=== PATIENT | male | born 1935 | race Caucasian/White ===

== ENCOUNTER 2018-03-11 13:07 | Emergency (ER) | payer OTHER, MEDICAID ==
[~2018-03-11] VITALS: Ht 167.6 cm; Wt 102.1 kg
[2018-03-11 13:36] VITALS: BP 122/74
== END 2018-03-11 15:57 | disposition home or self-care (01) ==
LOC: ER 13:07
DX: S61.213A Laceration without foreign body of left middle finger without damage to nail, initial encounter (principal); I10 Essential (primary) hypertension; E78.5 Hyperlipidemia, unspecified; X58.XXXA Exposure to other specified factors, initial encounter; Y93.39 Activity, other involving climbing, rappelling and jumping off; Y92.89 Other specified places as the place of occurrence of the external cause; Y99.8 Other external cause status
CPT/HCPCS: 73140

== ENCOUNTER 2018-04-04 07:25 | Emergency (ER) | payer OTHER, MEDICAID ==
[~2018-04-04] VITALS: Ht 167.6 cm; Wt 99.9 kg
[2018-04-04 08:29] LABS: Basophils # (auto) 0 uL; Basophils % (auto) 0.5 % (0.0-2.0); Eosinophils # (auto) 0.1 uL; Eosinophils % (auto) 1.4 % (0.0-7.0); Hematocrit 44.6 % (41.0-53.0); Lymphocytes % (auto) 12.1 % (10.0-50.0); Mean Corpuscular Hemoglobin 29.5 pg (28.0-32.0); Mean Corpuscular Hgb Conc. 33.5 g/dL (32.0-36.0); Mean Corpuscular Volume 88.1 fL (80.0-100.0); Monocytes # (auto) 0.5 uL; Monocytes % (auto) 6.4 % (0.0-12.0); Neutrophils # (auto) 6.7 uL; Neutrophils % (auto) 79.6 % (37.0-80.0); Nucleated Red Blood Cells % 0.1 %; Platelet Count (auto) 179 10^3/uL (140-450); Red Blood Cells 5.06 10^6/uL (4.5-5.90); Red Cell Distribution Width 13.5 % (11.8-14.3); White Blood Cell 8.4 10^3/uL (4.4-10.8)
[2018-04-04 08:44] LABS: Albumin 3.5 g/dL (3.4-5.0); BUN/Creatinine Ratio 14.6; Calcium 9.2 mg/dL (8.5-10.1); Magnesium 2.1 mg/dL (1.6-2.6)
[2018-04-04 08:49] LABS: Bilirubin, Total 0.4 mg/dL (0.2-1.0); Total Protein 7.5 g/dL (6.4-8.2)
[2018-04-04 08:50] LABS: Potassium 4.5 mmol/L (3.5-5.1)
[2018-04-04 09:03] LABS: Urine WBC None Seen /hpf (0 - 3)
[2018-04-04 09:18] LABS: Urine Bacteria NONE SEEN /hpf (None Seen); Urine Blood Negative /uL (Negative); Urine Specific Gravity 1.009 (1.001-1.035)
[2018-04-04 10:31] VITALS: BP 121/78
== END 2018-04-04 10:42 | disposition home or self-care (01) ==
LOC: EDBD 07:25 → ER 07:25
DX: R42 Dizziness and giddiness (principal); I10 Essential (primary) hypertension; J44.9 Chronic obstructive pulmonary disease, unspecified; E78.5 Hyperlipidemia, unspecified
CPT/HCPCS: 36415; 70450; 71045; 80053; 81001; 83735; 83880; 84484; 85025; 93005

== ENCOUNTER 2018-06-20 12:17 | Inpatient (IN) | payer OTHER, MEDICAID | END 2018-06-21 17:50 | disposition home or self-care (01) | LOC: ER 12:17 → TELE 15:21 → TELE-WESTW 17:04 | DX: I24.9 Acute ischemic heart disease, unspecified (principal); J44.9 Chronic obstructive pulmonary disease, unspecified ==

== ENCOUNTER 2020-05-27 09:43 | Inpatient (IN) | payer OTHER, MEDICAID ==
[~2020-05-27] VITALS: Ht 182.9 cm; Wt 98.2 kg
[2020-05-27] MEDS: ALBUMIN 25% 50 ML IV SCH (00:30)
[~2020-05-27 09:43] MED LIST: AMLO5TAB15 PO; ASPI81CH74 PO; BACL10TA PO; CHOL20007 PO; CIME200T6 PO; FLUT0.05 NAS; LATA0.0019 EACHEYE; LISI40TA11 PO; MULT1TAB28 PO; SIMV10TA84 PO; TAMS0.4C36 PO; TIOT17SP IN
[2020-05-27 10:25] LABS: Basophils # (auto) 0 10 ^3/uL (0-0.2); Basophils % (auto) 0.2 % (0.0-2.0); Eosinophils # (auto) 0 10 ^3/uL (0-0.8); Hematocrit 44.6 % (41.0-53.0); Hemoglobin 14.7 g/dL (13.5-17.5); Lymphocytes # (auto) 0.4 10 ^3/uL (0.4-5.4); Lymphocytes % (auto) 5.7 % (10.0-50.0); Mean Corpuscular Hemoglobin 28.4 pg (28.0-32.0); Mean Corpuscular Volume 85.9 fL (80.0-100.0); Monocytes # (auto) 0.3 10 ^3/uL (0-1.3); Monocytes % (auto) 4.2 % (0.0-12.0); Neutrophils # (auto) 5.9 10 ^3/uL (1.6-8.6); Neutrophils % (auto) 89.9 % (37.0-80.0); Nucleated Red Blood Cells % 0.1 %; Platelet Count (auto) 131 10^3/uL (140-450); Red Blood Cells 5.19 10^6/uL (4.5-5.90); Red Cell Distribution Width 14.2 % (11.8-14.3); White Blood Cell 6.6 10^3/uL (4.4-10.8)
[2020-05-27 10:47] LABS: Albumin 2.8 g/dL (3.4-5.0); Calcium 8.7 mg/dL (8.5-10.1); Magnesium 2.1 mg/dL (1.6-2.6); Potassium 3.7 mmol/L (3.5-5.1)
[2020-05-27 10:54] LABS: BUN/Creatinine Ratio 19.8; Bilirubin, Total 0.3 mg/dL (0.2-1.0); Total Protein 6.9 g/dL (6.4-8.2)
[2020-05-27 10:59] LABS: INR 1.04 (0.9-1.15); Partial Thromboplastin Time 29.7 sec (23.0-31.2)
[2020-05-27] MEDS ORDERED: SODIUM CHLORIDE 0.9% 1,000 ML IV ONE (13:00)
[2020-05-27] MEDS ORDERED: SODIUM CHLORIDE 0.9% 500 ML IV ONE (14:30)
[2020-05-27] MEDS ORDERED: FUROSEMIDE 20 MG/2 ML VIAL IV ONE (14:45)
[2020-05-27] MEDS ORDERED: VANCOMYCIN PER PHARMACY 0 MG IV SCH (14:45)
[2020-05-27] MEDS ORDERED: ONDANSETRON HCL 4 MG/2 ML VIAL IV PRN (14:45)
[2020-05-27] MEDS ORDERED: ACETAMINOPHEN 500 MG TAB PO PRN (14:45)
[2020-05-27] MEDS ORDERED: DOCUSATE SOD 100 MG CAP PO PRN (14:45)
[2020-05-27] MEDS ORDERED: PIPERACILLIN-TAZOB 3.375GM 100 ML IV ONE (14:45)
[2020-05-27] MEDS ORDERED: REMDESIVIR PER PHARMACY 0 ML IV SCH ×2 (14:45→18:15)
[2020-05-27] MEDS ORDERED: ALBUMIN 25% 50 ML IV ONE (14:45)
[2020-05-27] MEDS ORDERED: NITROGLYCERIN 0.4 MG SL TAB SL PRN (14:45)
[2020-05-27] MEDS ORDERED: LORazepam 0.5 MG TAB PO PRN (14:45)
[2020-05-27] MEDS ORDERED: INFLUENZA QUAD 2020-2021 0.5 ML SYRG IM ONE (14:45)
[2020-05-27] MEDS ORDERED: MORPHINE SULF INJ 2 MG/ML SYRINGE 1ML IV PRN ×2 (14:45)
[2020-05-27] MEDS ORDERED: PNEUMOCOCCAL VACC POLYS 25 MCG/0.5 ML VIAL IM ONE (14:45)
[2020-05-27] MEDS ORDERED: ENOXAPARIN SOD 100 MG/1 ML SYRINGE SC ONE (14:45)
[2020-05-27] MEDS ORDERED: LORA-622 PO (14:53)
[2020-05-27] MEDS ORDERED: TRIA75TA55 PO (14:53)
[2020-05-27] MEDS ORDERED: FLUT1SPR5 (14:53)
[2020-05-27] MEDS ORDERED: CYAN1TAB11 PO (14:53)
[2020-05-27] MEDS ORDERED: SIMV-8 PO (14:53)
[2020-05-27] MEDS ORDERED: AMLO10TA13 PO (14:53)
[2020-05-27] MEDS ORDERED: FAMO-12 PO (14:53)
[2020-05-27] MEDS ORDERED: IPRA0.00 IN (14:53)
[2020-05-27 16:50] LABS: Basophils # (auto) 0 10 ^3/uL (0-0.2); Basophils % (auto) 0.4 % (0.0-2.0); Eosinophils # (auto) 0 10 ^3/uL (0-0.8); Hematocrit 42.5 % (41.0-53.0); Hemoglobin 14.1 g/dL (13.5-17.5); Lymphocytes # (auto) 0.5 10 ^3/uL (0.4-5.4); Lymphocytes % (auto) 8.3 % (10.0-50.0); Mean Corpuscular Hemoglobin 28.5 pg (28.0-32.0); Mean Corpuscular Hgb Conc. 33.3 g/dL (32.0-36.0); Mean Corpuscular Volume 85.5 fL (80.0-100.0); Monocytes # (auto) 0.3 10 ^3/uL (0-1.3); Monocytes % (auto) 5.9 % (0.0-12.0); Neutrophils # (auto) 4.9 10 ^3/uL (1.6-8.6); Neutrophils % (auto) 85.4 % (37.0-80.0); Nucleated Red Blood Cells % 0.1 %; Platelet Count (auto) 127 10^3/uL (140-450); Red Blood Cells 4.96 10^6/uL (4.5-5.90); Red Cell Distribution Width 14.6 % (11.8-14.3); White Blood Cell 5.8 10^3/uL (4.4-10.8)
[2020-05-27 17:08] LABS: Albumin 2.5 g/dL (3.4-5.0); Calcium 8.1 mg/dL (8.5-10.1); Potassium 3.8 mmol/L (3.5-5.1)
[2020-05-27 17:11] LABS: Cholesterol 91 mg/dL (< 200); Triglycerides 98 mg/dL (< 150)
[2020-05-27 17:13] LABS: HDL Cholesterol 35 mg/dL (40-59); LDL Cholesterol 48 mg/dL (< 100)
[2020-05-27 17:15] LABS: Bilirubin, Total 0.3 mg/dL (0.2-1.0); CRP High Sensitivity 14.1 mg/dL (< 0.3); Total Protein 6.2 g/dL (6.4-8.2)
[2020-05-27] MEDS: FUROSEMIDE 20 MG/2 ML VIAL IV SCH (18:20)
[2020-05-27 18:50] VITALS: BP 85/40
[2020-05-27] MEDS: BUDESONIDE (INHALATION) 180 MCG IH IN SCH ×2 (18:50→22:00)
[2020-05-27 19:31] LABS: Urine Bacteria NONE SEEN /hpf (None Seen); Urine Blood Negative /uL (Negative); Urine Hyaline Cast FEW /lpf (0 - 2); Urine Mucus FEW (None Seen); Urine Specific Gravity 1.021 (1.001-1.035); Urine WBC 2 /hpf (0 - 3)
[2020-05-27 19:36] LABS: Amphetamine Screen, Urine NEGATIVE (NEGATIVE); Barbiturate Scree,Urine NEGATIVE (NEGATIVE); Benzodiazephine Screen, Urine NEGATIVE (NEGATIVE); Cannabinoid Screen, Urine NEGATIVE (NEGATIVE); Cocaine Screen, Urine NEGATIVE (NEGATIVE); Opiate Scree,Urine NEGATIVE (NEGATIVE); Phencyclidine Screen, Urine NEGATIVE (NEGATIVE)
[2020-05-27] MEDS ORDERED: REMDESIVIR 200 MG in NS 210ml LOADING DOSE ADULT IV ONE (20:00)
[2020-05-27] MEDS ORDERED: VANCOMYCIN 1GM/250ML 250 ML IV SCH (21:00)
[2020-05-27 22:08] VITALS: BP 106/47
--- NOTE | 2020-05-27 22:08 | NUR ---
Telemetry admit from ER [facility] admitted to Telemetry unit after SBAR received. Patient oriented to JAYESH BOB RN primary RN, unit, room, bed, and unit policies regarding patient care and visiting hours. Patient now on continuous telemetry monitoring, tele box # 31 and telemetry reading on arrival to unit is sinus rhythm. Patient placed on bipap, weighed by bedscale and encouraged to call if they need something. All questions and concerns addressed, patient verbalized understanding. Bed in lowest locked position, side rails up x 2, call light within reach. Will round every hour and as needed and continue to monitor. Addendum: 05/28/20 at 0306 by JAYESH BOB RN RN ADDITION: Per report from [facility], unable to give ordered IV medications due to multiple code blues in ER. Will obtain second IV access and administer ordered medications as IV access allows.
[2020-05-27] MEDS: ALBUTEROL SULF HFA 90MCG INH 200DOSE IN PRN (23:34)
--- NOTE | 2020-05-27 23:55 | NUR ---
22:55 - Remdesivir started at this time. Vital signs: 98.6 degrees Fahrenheit, 76 HR, 20 RR, 89% pulse oxygenation, 110/50 mm Hg. 23:10 - Patient tolerating Remdesivir well. Vital signs: 98.7 degrees Fahrenheit, 81 HR, 20 RR, 87% pulse oxygenation, 106/47 mm Hg. 23:55 - Remdesivir finished, no s/s of distress. Vital signs: 97.9 degrees Fahrenheit, 73 HR, 20 RR, 89% pulse oxygenation, 113/61 mm Hg.
--- NOTE | 2020-05-28 00:25 | NUR ---
IV insertion IV access obtained, via clean sterile technique by inserting 22 gauge catheter to patient's left hand after one attempt by charge nurse Bao BRISCOE. IV secured properly. No trauma to site. Patient tolerated well. IV to patient's left AC asymptomatic, patent, and intact. Will continue to infuse ordered IV medications as patient tolerates and IV sites allow. Will continue care.
[2020-05-28] MEDS: VANCOMYCIN 1GM/250ML 250 ML IV SCH (00:30)
[2020-05-28] MEDS: ATORVASTATIN 20 MG TAB PO SCH ×2 (00:35→22:11)
[2020-05-28] MEDS: ENOXAPARIN SOD 100 MG/1 ML SYRINGE SC SCH ×2 (02:24→13:47)
[2020-05-28] MEDS: PIPERACILLIN-TAZOB 3.375GM 100 ML IV SCH ×4 (02:24→20:29)
[2020-05-28 05:00] VITALS: BP 116/51
[2020-05-28] MEDS: BUDESONIDE (INHALATION) 180 MCG IH IN SCH ×2 (06:06→20:10)
[2020-05-28] MEDS: ALBUMIN 25% 50 ML IV SCH ×2 (06:54→14:00)
[2020-05-28] MEDS: FUROSEMIDE 20 MG/2 ML VIAL IV SCH ×2 (06:54→18:43)
--- NOTE | 2020-05-28 07:30 | NUR ---
Patient lying in bed, awake and alert and oriented. Bipap mask noted to not be sealing well over patient's nose causing a leak. This RN attempted to adjust bipap mask, patient batted this RN's hands away stating, "No, I just want to be left alone!" Patient educated on the importance of keeping bipap mask on and ensuring proper seal including risks and benefits of not wearing mask, patient stated, "I don't care, just leave me alone!" RT made aware, states they will bring full face mask to assist patient. Dayshift RN aware and care endorsed. Call light within patient's reach.
--- NOTE | 2020-05-28 07:30 | NUR ---
ASSUMED CARE OF PATIENT RESTING WITH EYES CLOSED. RESPIRATIONS EVEN AND UNLABORED. PATIENT IS CURRENTLY ON BIPAP MACHINE, HOWEVER WILL PAGE RESPIRATORY TO GET A BIGGER FACE MASK DUE TO THE PATIENT'S CURRENT FACE MASK BEING TOO SMALL. HOB ELEVATED AT LEAST 30 DEGREES, BED LOCKED IN LOWEST POSITION AND CALL LIGHT IS WITHIN REACH.
--- NOTE | 2020-05-28 08:00 | NUR ---
SPOKE WITH RESPIRATORY THERAPIST VIA TELEPHONE AND RESPIRATORY THERAPIST VERBALIZED THAT THEY WILL ACQUIRE A LARGER FACE MASK FOR THIS PATIENT.
[2020-05-28 09:00] VITALS: BP 136/66
[2020-05-28] MEDS: ASPirin 81 mg TAB PO SCH (10:56)
[2020-05-28] MEDS: ASCORBIC ACID 1,000 MG TAB PO SCH (10:56)
[2020-05-28] MEDS: ZINC SULFATE 220mg CAP or TAB PO SCH (10:56)
[2020-05-28] MEDS: DexAMETHasone SOD PHOS 10MG/1ML VIAL INJ IV SCH (10:56)
[2020-05-28] MEDS: CHOLECALCIFEROL (VITD3) 2,000 UNIT CAP PO SCH (10:57)
--- NOTE | 2020-05-28 11:00 | NUR ---
CODE ASSIST CALLED CALLED TO ROOM BY JIM BRISCOE. PATIENT LYING LATERALLY IN BED AND UNRESPONSIVE WITH FACE MASK OFF. FACE MASK PUT BACK ON AND CODE PROTOCOL INITIATED. VITALS ALL RETURNED WITHIN NORMAL LIMITS WITHIN 10 MINUTES, HOWEVER PATIENT'S BIPAP MACHINE WAS ADJUSTED TO REACH A FAVORABLE O2 SATURATION. PATIENT ALERT AND ABLE TO RESPOND WELL OBEY COMMANDS. ORDERS RECEIVED FROM DR MARIANO TO ADJUST ATIVAN TO IV RATHER THAN PO. CONTINUE CARE.
[2020-05-28] MEDS: LORazepam 2MG/ML-1ML VIAL IV PRN (13:03)
[2020-05-28 13:30] VITALS: BP 106/51
[2020-05-28 13:51] LABS: Basophils # (auto) 0 10 ^3/uL (0-0.2); Basophils % (auto) 0.1 % (0.0-2.0); Eosinophils # (auto) 0 10 ^3/uL (0-0.8); Hemoglobin 14.5 g/dL (13.5-17.5); Lymphocytes # (auto) 0.3 10 ^3/uL (0.4-5.4); Lymphocytes % (auto) 4.3 % (10.0-50.0); Mean Corpuscular Hemoglobin 28.3 pg (28.0-32.0); Mean Corpuscular Hgb Conc. 32.9 g/dL (32.0-36.0); Mean Corpuscular Volume 85.9 fL (80.0-100.0); Monocytes # (auto) 0.1 10 ^3/uL (0-1.3); Monocytes % (auto) 1.5 % (0.0-12.0); Neutrophils # (auto) 6.4 10 ^3/uL (1.6-8.6); Neutrophils % (auto) 94.1 % (37.0-80.0); Nucleated Red Blood Cells % 0.2 %; Platelet Count (auto) 139 10^3/uL (140-450); Red Blood Cells 5.12 10^6/uL (4.5-5.90); Red Cell Distribution Width 14.2 % (11.8-14.3); White Blood Cell 6.8 10^3/uL (4.4-10.8)
[2020-05-28 14:08] LABS: Albumin 2.7 g/dL (3.4-5.0); Calcium 8.3 mg/dL (8.5-10.1); Potassium 3.7 mmol/L (3.5-5.1)
[2020-05-28 14:12] LABS: BUN/Creatinine Ratio 20.4; Bilirubin, Total 0.5 mg/dL (0.2-1.0); Total Protein 6.5 g/dL (6.4-8.2)
[2020-05-28] MEDS: REMDESIVIR 100 MG in SODIUM CHL 0.9% 250 ML IV SCH (15:00)
--- NOTE | 2020-05-28 16:00 | NUR ---
PATIENT MOVED TO ROOM 44-6 DUE TO THE FACT THAT HE NEEDS A SITTER
[2020-05-28 17:00] VITALS: BP 117/59
--- NOTE | 2020-05-28 18:00 | NUR ---
REMDESIVIR PRE INFUSION VITALS BP-117/59, O2-96, HR 70, TEMP 98.0, RR 20 15 MINUTE POST INFUSION BP-107,52, O2-92, HR 86, TEMP 98.0, RR 20 POST INFUSION VITALS BP-107/57, O2-90, HR 64, TEMP 98.2, RR 36
--- NOTE | 2020-05-28 18:50 | NUR ---
instructed by pharmacist to endorse zosyn administration to noc shift
--- NOTE | 2020-05-28 20:00 | NUR ---
RECEIVED PATIENT FROM DAY SHIFT RN. PATIENT RESTING IN BED. NO S/S OF DISTRESS NOTED. PATIENT IS ON BIPAP WITH O2 SAT 87%. DENIED PAIN AT THIS TIME. POC INSTRUCTED AND ENCOURAGED PATIENT TO CALL FOR TIRE BAGGER IF NEEDED. BED IN LOWEST POSITION WITH SIDE RAILS UP X 2. CALL STEVENSON WITHIN EACH. ALARM ON. SITTER AT BEDSIDE FOR SAFETY. CONTINUE TO MONITOR FOR CHANGES Q1H AND PRN
--- NOTE | 2020-05-28 20:04 | NUR ---
ENDORSED CARE TO NOC SHIFT RN
[2020-05-28] MEDS: ALBUTEROL SULF HFA 90MCG INH 200DOSE IN PRN (20:10)
[2020-05-28 22:00] VITALS: BP 112/55
--- NOTE | 2020-05-28 22:30 | NUR ---
ORAL MEDIATION GIVEN ORDERED. PATIENT SWALLOWED WELL, BUT O2 SAT DROPPED TO 70S%, RT PAGED AND CAME RIGHT WAY, FIXED PATIENT ON BIPAP. O2 SAT BACK TO 86%. CONTINUE TO MONITOR.
[2020-05-29] MEDS: VANCOMYCIN 1GM/250ML 250 ML IV SCH ×2 (00:12→23:51)
[2020-05-29] MEDS: PIPERACILLIN-TAZOB 3.375GM 100 ML IV SCH ×4 (01:37→19:00)
[2020-05-29] MEDS: ENOXAPARIN SOD 100 MG/1 ML SYRINGE SC SCH ×2 (01:39→14:12)
--- NOTE | 2020-05-29 04:26 | NUR ---
CHANGED PATIENT, PATIENT TOLERATED WELL. O2 SAT 86% ON BIPAP. CONTINUE TO MONITOR.
[2020-05-29 05:00] VITALS: BP 110/52
[2020-05-29] MEDS: BUDESONIDE (INHALATION) 180 MCG IH IN SCH ×2 (05:49→20:00)
[2020-05-29] MEDS: FUROSEMIDE 20 MG/2 ML VIAL IV SCH ×2 (06:19→19:00)
--- NOTE | 2020-05-29 07:30 | NUR ---
Opening Shift Note Assumed care of patient, awake and alert. Pt on bipap, sating in the 90's. Instructed on POC and to calling for assist PRN, will continue to monitor for changes Q1hr and PRN. Sitter at bedside.
[2020-05-29 09:03] VITALS: BP 106/51
[2020-05-29] MEDS: DexAMETHasone SOD PHOS 10MG/1ML VIAL INJ IV SCH (10:37)
--- NOTE | 2020-05-29 11:45 | NUR ---
MADE DR CASANOVA AWARE OF PT ALT 288, AND PHARMACY INQUIRING ABOUT REMDESIVIR DOSE. PER DR CASANOVA HOLD REMDESIVIR DOSE TODAY.
[2020-05-29] MEDS: ASPirin 81 mg TAB PO SCH (12:53)
[2020-05-29] MEDS: ASCORBIC ACID 1,000 MG TAB PO SCH (12:54)
[2020-05-29] MEDS: CHOLECALCIFEROL (VITD3) 2,000 UNIT CAP PO SCH (12:54)
[2020-05-29] MEDS: ZINC SULFATE 220mg CAP or TAB PO SCH (12:54)
[2020-05-29] MEDS: HYDROcodone-ACET 5/325MG TAB PO PRN (12:55)
[2020-05-29 13:00] VITALS: BP 113/66
--- NOTE | 2020-05-29 13:00 | NUR ---
DR JOAQUIN IN TO SEE PT. NO NEW ORDERS RECEIVED.
[2020-05-29 14:37] VITALS: BP 98/64
[2020-05-29 17:00] VITALS: BP 123/69
--- NOTE | 2020-05-29 19:15 | NUR ---
CHANGE OF SHIFT REPORT GIVEN TO MANUAL TRAINING TEACHER RN.PT STABLE AT THIS TIME. SITTER AT BEDSIDE.
--- NOTE | 2020-05-29 19:45 | NUR ---
RECEIVED PATIENT FROM DAY SHIFT RN. PATIENT RESTING IN BED. NO S/S OF DISTRESS NOTED. PATIENT IS ON BIPAP WITH O2 SAT 92%. DENIED PAIN AT THIS TIME. POC INSTRUCTED AND ENCOURAGED PATIENT TO CALL FOR LUBE TECHNICIAN IF NEEDED. BED IN LOWEST POSITION WITH SIDE RAILS UP X 2. CALL STEVENSON WITHIN EACH. ALARM ON. SITTER AT BEDSIDE FOR SAFETY. CONTINUE TO MONITOR FOR CHANGES Q1H AND PRN
[2020-05-29] MEDS: ALBUTEROL SULF HFA 90MCG INH 200DOSE IN PRN (20:00)
[2020-05-29 22:14] VITALS: BP 102/53
[2020-05-29] MEDS: ATORVASTATIN 20 MG TAB PO SCH (22:14)
--- NOTE | 2020-05-29 22:22 | NUR ---
ORAL MEDIATION GIVEN ORDERED. PATIENT SWALLOWED WELL, NO S/S OF ASPIRATION NOTED. O2 SAT 92%. CONTINUE TO MONITOR.
[2020-05-30] MEDS: HYDROcodone-ACET 5/325MG TAB PO PRN (01:00)
[2020-05-30] MEDS: PIPERACILLIN-TAZOB 3.375GM 100 ML IV SCH ×4 (02:47→22:30)
[2020-05-30] MEDS: ENOXAPARIN SOD 100 MG/1 ML SYRINGE SC SCH ×2 (02:48→13:34)
--- NOTE | 2020-05-30 03:34 | NUR ---
CHANGED PATIENT, PATIENT TOLERATED WELL. O2 SAT 94% ON BIPAP. CONTINUE TO MONITOR.
[2020-05-30 05:00] VITALS: BP 108/57
[2020-05-30] MEDS: ALBUTEROL SULF HFA 90MCG INH 200DOSE IN PRN ×3 (06:14→18:00)
[2020-05-30] MEDS: BUDESONIDE (INHALATION) 180 MCG IH IN SCH ×2 (06:16→18:00)
[2020-05-30] MEDS: FUROSEMIDE 20 MG/2 ML VIAL IV SCH ×2 (06:20→18:51)
--- NOTE | 2020-05-30 06:34 | NUR ---
RT PAGED TO SWITCH PATIENT'S MASK FOR BIPAP. O2 SAT 94% NOW. CONTINUE TO MONITOR.
[2020-05-30 07:33] LABS: Albumin 2.4 g/dL (3.4-5.0); BUN/Creatinine Ratio 32.9; Bilirubin, Total 0.6 mg/dL (0.2-1.0); Calcium 8.5 mg/dL (8.5-10.1); Total Protein 5.7 g/dL (6.4-8.2)
[2020-05-30 07:44] LABS: Potassium 2.9 mmol/L (3.5-5.1)
[2020-05-30 09:00] VITALS: BP 120/57
[2020-05-30] MEDS: ZINC SULFATE 220mg CAP or TAB PO SCH (10:00)
[2020-05-30] MEDS: CHOLECALCIFEROL (VITD3) 2,000 UNIT CAP PO SCH (10:00)
[2020-05-30] MEDS: ASPirin 81 mg TAB PO SCH (10:00)
[2020-05-30] MEDS: ASCORBIC ACID 1,000 MG TAB PO SCH (10:00)
[2020-05-30] MEDS: LORazepam 2MG/ML-1ML VIAL IV PRN ×2 (10:19→10:41)
[2020-05-30] MEDS: DexAMETHasone SOD PHOS 10MG/1ML VIAL INJ IV SCH (10:19)
--- NOTE | 2020-05-30 11:50 | NUR ---
MD IRIZARRY IN UNIT: PATIENT IN NEED OF PICC LINE FOR TPN, UPDATED ON PO INTAKE, AND BIPAP SETTINGS.
--- NOTE | 2020-05-30 12:04 | NUR ---
Nutrition Assessment Notes Please refer to link for full assessment notes. Est Energy needs: 3423-0872 kcals (17-20 kcal/kgBW) Est Protein needs: 102-113 gms/day (1.0-1.1 gm/kgBW) Will continue to monitor and reassess prn. Addendum: 05/30/20 at [address] Amended: Links added.
[2020-05-30 13:00] VITALS: BP 109/57
--- NOTE | 2020-05-30 14:07 | NUR ---
Assessment Patient is a 84 year old male, patient was unable to speak with SW, ADAMARIS called ex- Michelle ([phone]). Per Michelle, prior to patient being admitting to [facility], patient is alert and oriented. Per Pat, patient cognitive abilities are intact. Per Pat, patient could do all ADL's and ambulate independently. Per Pat, patient is retired and receives social security and [employer] benefits as income. Per Pat, patient lives with her, Per Pat, patient can return home only if he is COVID negative, if patient is COVID positive on discharge date, patient can not return home until he test negative. Per Pat, if patient is test negative at discharge, she will provide transportation post discharge. Per Pat, she is his support system. Per Michelle, suggested that patient should receive Advance Directive forms. Discharge planning: Patient will return home post discharge if tested negative for COVID19, patient will follow up care with his PCP post discharge. SW will provide Advance Directive forms prior to discharge. There are no other discharge needs to address at the moment. Addendum: 05/30/20 at 1415 by NNEKA FLANNERY Amended: Links added.
[2020-05-30] MEDS ORDERED: POTASSIUM EFFERVESENT TAB 25 MEQ PO ONE (14:15)
[2020-05-30] MEDS ORDERED: ACETAMINOPHEN 500 MG TAB PO PRN (14:15)
--- NOTE | 2020-05-30 14:15 | NUR ---
Consultation Patient lives with his ex- Pat, Per Michelle, patient can not return home if COVID positive on discharge. Per Michelle, she wants patient to test negative for COVID before being discharge home. Per Michelle, she has recovered from her broken hip and she can assist care with patient post discharge.
[2020-05-30] MEDS: ENOXAPARIN SOD 80 MG/0.8ML SYRINGE SC SCH (14:30)
[2020-05-30] MEDS: REMDESIVIR 100 MG in SODIUM CHL 0.9% 250 ML IV SCH (15:33)
[2020-05-30] MEDS ORDERED: PPN PER PHARMACY 0 ML IV SCH (15:45)
[2020-05-30 17:00] VITALS: BP 112/64
--- NOTE | 2020-05-30 17:38 | NUR ---
PICC LINE RN AT BEDSIDE.
--- NOTE | 2020-05-30 17:39 | NUR ---
PATIENT UNABLE TO DRINK EFFERVESCENT, STATED "IT'S BITTER." BIPAP PUT BACK IN PLACE, DOCUMENTED PATIENT REFUSAL.
--- NOTE | 2020-05-30 18:51 | NUR ---
PICC line placement Patient/Patient significant other educated on need for PICC line placement. All risks and benefits explained and all questions and concerns addressed prior to procedure. Noted past medical history and allergies with no contraindications. INR and Plt counts within acceptable range. 5 fr PICC line inserted via LEFT BRACHIAL vein using [employer]'s [employer] US and Tip Location System. Sterile technique with maximum barrier precautions utilized. Blood return obtained from each of 2 lumens and each flushed easily with NS using proper technique. PICC secured with Stat-lock; biodisc and occlusive dressing applied. Stat portable chest x-ray obtained for PICC tip placement. *Baseline Arm Circumference 30. PICC lot #[id number]. INTERNAL LENGTH 50CM EXTERNAL LENGTH 2CM
--- NOTE | 2020-05-30 18:52 | NUR ---
CARMEL HELD: PER POTASSIUM LEVEL, 2.9 AND PATIENT DID NOT TAKE PO POTASSIUM EFFERVESCENT ORDERED TODAY.
--- NOTE | 2020-05-30 18:56 | NUR ---
MEASURING TAPE AT BEDSIDE. PER [facility] RN, ARM INITIALLY AT 30CM, RN'S TO MEASURE CIRCUMFERENCE TO ENSURE NO SWELLING OR CHANGES ARE MADE THROUGHOUT THE NEXT SHIFT.
[2020-05-30] MEDS: AMINO ACID INFUSION IN D10W 1,000 ML IV NR (19:42)
[2020-05-30 22:00] VITALS: BP 123/60
[2020-05-30] MEDS: SODIUM CHLOR 0.9% PF (SALINE LOCK) 10ML VIAL/SYR IV SCH (22:30)
--- NOTE | 2020-05-30 23:00 | NUR ---
NOTE Circumference of left arm is 30. No changes noted in circumference. CXR shows correct placement of PICC. PICC lines flushed and alcohol caps applied. Took off gauze that was applied to PICC site d/t bleeding at insertion site. There was still some minimal bleeding on the site. Reapplied some gauze and coban to the site.
[2020-05-30] MEDS: InsuLIN REG 1unit/0.01ml Soln (100units/ml) SC SCH (23:35)
[2020-05-30] MEDS: ACCU-CHEK COMFORT CURVE STRIP VI SCH (23:38)
[2020-05-31] MEDS ORDERED: DEXTROSE (50%) 50ML SYRG IV SCH
--- NOTE | 2020-05-31 01:47 | NUR ---
IV removed 22G IV to left hand pulled out on accident when patient was turning in bed. The site was bleeding significantly. Pressure applied to site and applied gauze.
[2020-05-31] MEDS: ENOXAPARIN SOD 80 MG/0.8ML SYRINGE SC SCH ×2 (02:10→16:51)
--- NOTE | 2020-05-31 03:51 | NUR ---
PICC Line Dressing Changes PICC line dressing change done with a sterile technique. Cleansed with chloraprep scrub/betadine. Stat lock, and bio-patch as available. Occlusive dressing applied. Changed claves weekly and post lab draw. During dressing change, some bleeding was noted to PICC line insertion site. Some pressure applied. Dressing is CDI at this time. Will inform day shift RN to observe for bleeding as well.
[2020-05-31 05:00] VITALS: BP 144/91
[2020-05-31] MEDS: InsuLIN REG 1unit/0.01ml Soln (100units/ml) SC SCH ×3 (05:39→18:00)
[2020-05-31] MEDS: ACCU-CHEK COMFORT CURVE STRIP VI SCH ×3 (05:43→18:24)
[2020-05-31] MEDS: PIPERACILLIN-TAZOB 3.375GM 100 ML IV SCH ×3 (05:44→21:14)
[2020-05-31] MEDS: FUROSEMIDE 20 MG/2 ML VIAL IV SCH (05:45)
[2020-05-31] MEDS: BUDESONIDE (INHALATION) 180 MCG IH IN SCH ×2 (05:55→18:32)
--- NOTE | 2020-05-31 07:00 | NUR ---
PAGED RT BIPAP machine keeps beeping at this time. Patient's SPO2 was ranging about 82-87%. Repositioned patient and SPO2 now currently at 90%. Will inform day shift RN.
--- NOTE | 2020-05-31 07:57 | NUR ---
Nutrition Consult TPN Pt is a new consult for new TPN. Pt is with a order of TPN at 50 ml/hr providing 510 kcal, 42.5g protein. Consider advancing TPN to meet >75% of need as medically feasible Advance diet as medically feasible.
[2020-05-31 09:00] VITALS: BP 132/66
[2020-05-31] MEDS: DexAMETHasone SOD PHOS 10MG/1ML VIAL INJ IV SCH (10:00)
[2020-05-31] MEDS: CHOLECALCIFEROL (VITD3) 2,000 UNIT CAP PO SCH (10:00)
[2020-05-31] MEDS: SODIUM CHLOR 0.9% PF (SALINE LOCK) 10ML VIAL/SYR IV SCH ×2 (10:00→21:13)
[2020-05-31] MEDS: POTASSIUM CHL 20 Meq TABLET PO SCH (10:00)
[2020-05-31] MEDS: ZINC SULFATE 220mg CAP or TAB PO SCH (10:00)
[2020-05-31] MEDS: ASPirin 81 mg TAB PO SCH (10:00)
[2020-05-31] MEDS: ASCORBIC ACID 1,000 MG TAB PO SCH (10:00)
--- NOTE | 2020-05-31 11:15 | NUR ---
Respiratory note: CHANGED PT MASK TO LARGE TOTAL FACE MASK. PT TOLERATING IT WELL. WILL CONTINUE TO MONITOR.
[2020-05-31 11:20] LABS: Basophils # (auto) 0 10 ^3/uL (0-0.2); Basophils % (auto) 0.1 % (0.0-2.0); Eosinophils # (auto) 0 10 ^3/uL (0-0.8); Hematocrit 44.3 % (41.0-53.0); Hemoglobin 14.9 g/dL (13.5-17.5); Lymphocytes # (auto) 0.6 10 ^3/uL (0.4-5.4); Lymphocytes % (auto) 4.3 % (10.0-50.0); Mean Corpuscular Hemoglobin 28.6 pg (28.0-32.0); Mean Corpuscular Hgb Conc. 33.6 g/dL (32.0-36.0); Mean Corpuscular Volume 85.1 fL (80.0-100.0); Monocytes # (auto) 0.7 10 ^3/uL (0-1.3); Monocytes % (auto) 5.2 % (0.0-12.0); Neutrophils # (auto) 12.6 10 ^3/uL (1.6-8.6); Neutrophils % (auto) 90.4 % (37.0-80.0); Platelet Count (auto) 212 10^3/uL (140-450); Red Cell Distribution Width 14.5 % (11.8-14.3); White Blood Cell 13.9 10^3/uL (4.4-10.8)
[2020-05-31 11:35] LABS: Albumin 2.6 g/dL (3.4-5.0); Calcium 8.9 mg/dL (8.5-10.1); Magnesium 2.8 mg/dL (1.6-2.6); Potassium 3.8 mmol/L (3.5-5.1)
[2020-05-31 12:07] LABS: BUN/Creatinine Ratio 39.5; Bilirubin, Total 0.6 mg/dL (0.2-1.0); CRP High Sensitivity 3.64 mg/dL (< 0.3); Phosphorus 2.1 mg/dL (2.5-4.90); Pre Albumin 11.2 mg/dL (20.0-40.0); Total Protein 6.2 g/dL (6.4-8.2)
[2020-05-31 13:00] VITALS: BP 133/65
--- NOTE | 2020-05-31 14:05 | NUR ---
DOCTOR LEOS AT BEDSIDE ASSESSING PATIENT, CHANGED BIPAP SETTING TO 18/10 FIO2 STILL AT 100% PATIENTS O2 AT 91%. NEW ORDERS RECEIVED TO TRANSFER PATIENT TO [facility]. HIGH SCHOOL COORDINATOR CALLED AND INFORM, AWAITING AVAILABLE BED FROM [facility].
[2020-05-31] MEDS ORDERED: NS IV ONE (14:15)
[2020-05-31] MEDS ORDERED: [UNRECOGNIZED DRUG - OTHER] IV ONE (14:15)
[2020-05-31] MEDS ORDERED: TPN PER PHARMACY 0 ML IV SCH (14:15)
--- NOTE | 2020-05-31 14:20 | NUR ---
DOCTOR IRIZARRY AT BEDSIDE DISCUSSING POC PATIENT VERBALIZES UNDERSTANDING AND AGREES WITH POC.
[2020-05-31] MEDS ORDERED: FUROSEMIDE 40 MG/4 ML VIAL IV ONE (15:30)
[2020-05-31] MEDS: AMINO ACID INFUSION IN D10W 1,000 ML IV NR (16:00)
[2020-05-31] MEDS: REMDESIVIR 100 MG in SODIUM CHL 0.9% 250 ML IV SCH (16:51)
[2020-05-31 17:00] VITALS: BP 131/70
--- NOTE | 2020-05-31 17:30 | NUR ---
Thibodeaux catheter insertion Patient assessed and determined to be in need of thibodeaux catheter. Order obtained from MD. Patient educated on catheter and reason for insertion. All questions answered. Thibodeaux catheter 16 guage Syriac inserted with clean sterile technique. Patient tolerated well.
--- NOTE | 2020-05-31 19:10 | NUR ---
remdesivir v/s 1800PRE- 131/70 HR 70 [id number] MIN-122/65 69HR 1900 POST-127/63 66HR NO S/S OF DISTRESS NOTED
[2020-05-31] MEDS ORDERED: TPN PER PHARMACY IV NR ×6 (20:00)
[2020-05-31 23:55] VITALS: BP 147/72
[2020-06-01] MEDS: InsuLIN REG 1unit/0.01ml Soln (100units/ml) SC SCH ×4 (03:30→18:52)
[2020-06-01] MEDS: ENOXAPARIN SOD 80 MG/0.8ML SYRINGE SC SCH ×2 (03:30→16:00)
[2020-06-01] MEDS: PIPERACILLIN-TAZOB 3.375GM 100 ML IV SCH ×3 (06:21→23:05)
[2020-06-01] MEDS: ACCU-CHEK COMFORT CURVE STRIP VI SCH ×4 (06:21→18:00)
[2020-06-01] MEDS: BUDESONIDE (INHALATION) 180 MCG IH IN SCH ×2 (07:01→18:55)
[2020-06-01 07:19] LABS: Hematocrit 45.6 % (41.0-53.0); Hemoglobin 14.9 g/dL (13.5-17.5); Mean Corpuscular Hemoglobin 27.8 pg (28.0-32.0); Mean Corpuscular Hgb Conc. 32.7 g/dL (32.0-36.0); Mean Corpuscular Volume 84.9 fL (80.0-100.0); Platelet Count (auto) 205 10^3/uL (140-450); Red Blood Cells 5.36 10^6/uL (4.5-5.90); Red Cell Distribution Width 14.8 % (11.8-14.3); White Blood Cell 12.8 10^3/uL (4.4-10.8)
[2020-06-01 07:50] LABS: Band Neutrophils % (manual) 0; Basophils % (manual) 0 (0.0-2.0); Blast Cells 0; Eosinophils % (manual) 0 (0-7); Metamyelocytes % 0; Promyelocytes % 0; Reactive Lymphocytes 0
[2020-06-01 08:43] LABS: Albumin 2.6 g/dL (3.4-5.0); BUN/Creatinine Ratio 35.5; Bilirubin, Total 0.7 mg/dL (0.2-1.0); Calcium 9.3 mg/dL (8.5-10.1); Magnesium 2.5 mg/dL (1.6-2.6); Phosphorus 2.2 mg/dL (2.5-4.90); Total Protein 6.4 g/dL (6.4-8.2)
[2020-06-01 09:00] VITALS: BP 143/70
[2020-06-01 09:14] LABS: Lymphocytes % (manual) 5 (10.0-50.0); Monocytes % (manual) 5 (0-12); Myelocytes % 2
[2020-06-01] MEDS: ASCORBIC ACID 1,000 MG TAB PO SCH (10:00)
[2020-06-01] MEDS: ZINC SULFATE 220mg CAP or TAB PO SCH (10:00)
[2020-06-01] MEDS: SODIUM CHLOR 0.9% PF (SALINE LOCK) 10ML VIAL/SYR IV SCH ×2 (10:00→23:05)
[2020-06-01] MEDS: POTASSIUM CHL 20 Meq TABLET PO SCH (10:00)
[2020-06-01] MEDS: CHOLECALCIFEROL (VITD3) 2,000 UNIT CAP PO SCH (10:00)
[2020-06-01] MEDS ORDERED: POTASSIUM PHOSPHATE 44 MEQ in D5W 5% 250 ML IV ONE (10:15)
[2020-06-01] MEDS: FUROSEMIDE 40 MG/4 ML VIAL IV SCH (11:09)
[2020-06-01] MEDS: DexAMETHasone SOD PHOS 10MG/1ML VIAL INJ IV SCH (11:09)
--- NOTE | 2020-06-01 12:41 | NUR ---
Called and spoke with Pat (patients significant other)[phone] Per Pat she is no longer to [place] and all medical decisions are to be made by his daughter Carolee. Doctor Andrew on phone with patients daughter Carolee ([phone])discussing POC.
[2020-06-01 13:00] VITALS: BP 136/67
[2020-06-01] MEDS: REMDESIVIR 100 MG in SODIUM CHL 0.9% 250 ML IV SCH (16:05)
[2020-06-01 17:00] VITALS: BP 125/71
--- NOTE | 2020-06-01 17:30 | NUR ---
REMDESIVIR V/S 1630 PRE 125/71 HR 71 1645 15 MINUTE 127/65 1745 POST REMDESIVIR V/S 130/59 HR 70 NO S/S OF DISTRESS NOTED
[2020-06-01] MEDS: ALBUTEROL SULF HFA 90MCG INH 200DOSE IN PRN (18:55)
[2020-06-01] MEDS ORDERED: TPN PER PHARMACY IV NR ×8 (20:00)
[2020-06-01 21:38] VITALS: BP 150/72
[2020-06-02] MEDS: ACCU-CHEK COMFORT CURVE STRIP VI SCH ×4 (01:23→17:51)
[2020-06-02] MEDS: InsuLIN REG 1unit/0.01ml Soln (100units/ml) SC SCH ×4 (01:24→17:52)
[2020-06-02] MEDS: ENOXAPARIN SOD 80 MG/0.8ML SYRINGE SC SCH ×2 (04:30→15:11)
[2020-06-02 05:00] VITALS: BP 143/74
[2020-06-02] MEDS: PIPERACILLIN-TAZOB 3.375GM 100 ML IV SCH ×3 (05:56→21:34)
--- NOTE | 2020-06-02 06:00 | NUR ---
Patient having O2 sat 82%. RT at the bedside and adjusted the the Bipap. Sitter at the bedside. Will continue to monitor patient.
[2020-06-02] MEDS: BUDESONIDE (INHALATION) 180 MCG IH IN SCH ×2 (06:08→21:34)
[2020-06-02 06:52] LABS: Potassium 3.4 mmol/L (3.5-5.1)
[2020-06-02 06:58] LABS: Albumin 2.7 g/dL (3.4-5.0); BUN/Creatinine Ratio 35.6; Bilirubin, Total 0.9 mg/dL (0.2-1.0); Calcium 9.5 mg/dL (8.5-10.1); Magnesium 2.5 mg/dL (1.6-2.6); Phosphorus 3.5 mg/dL (2.5-4.90); Total Protein 6.6 g/dL (6.4-8.2)
[2020-06-02 07:51] VITALS: BP 137/70
[2020-06-02] MEDS: ASCORBIC ACID 1,000 MG TAB PO SCH (10:00)
[2020-06-02] MEDS: ZINC SULFATE 220mg CAP or TAB PO SCH ×2 (10:00→10:43)
[2020-06-02] MEDS: CHOLECALCIFEROL (VITD3) 2,000 UNIT CAP PO SCH (10:00)
[2020-06-02] MEDS: POTASSIUM CHL 20 Meq TABLET PO SCH (10:00)
--- NOTE | 2020-06-02 10:00 | NUR ---
PT UNABLE TO TAKE HIS PILLS, PT ON BIPAP, O2 DROPS WITHOUT BIPAP.
[2020-06-02] MEDS: FUROSEMIDE 40 MG/4 ML VIAL IV SCH (10:43)
[2020-06-02] MEDS: DexAMETHasone SOD PHOS 10MG/1ML VIAL INJ IV SCH (10:43)
[2020-06-02] MEDS: SODIUM CHLOR 0.9% PF (SALINE LOCK) 10ML VIAL/SYR IV SCH ×2 (10:43→20:31)
[2020-06-02] MEDS ORDERED: POTASSIUM CHL 20MEQ/100ML 100 ML IV ONE ×2 (11:00→13:30)
[2020-06-02 12:46] VITALS: BP 150/76
--- NOTE | 2020-06-02 14:52 | NUR ---
Nutrition Followup Note Wt 97.6kg Pt is covid positive in covid isolation. Pt is NPO with TPN advanced to 53 ml/hr providing 1230 kcal, 70g protein and 950 NPCs. This provides 60-71% of energy needs and 62-69% of protein needs. Advance TPN to meet >75% of needs Est Energy needs: 6941-3645 kcals (17-20 kcal/kgBW) Est Protein needs: 102-113 gms/day (1.0-1.1 gm/kgBW) Will continue to monitor and reassess prn. Labs: Na 147H, Creat 1.32H, K 3.4L, BUn 47H, Alb 2.7L, GLUC 233 BM: Pt with 1 BMs 05/29 Skin: BS 13 mod risk, full details in hospice patient care secretary note. PES: 1) Inadequate oral intake r/t pt with a poor appetite aeb <25% PO intake 2) Altered nutrition related lab values r/t current/chronic medical condition aeb elev RFTs, elev LFTs, hypokalemia, hyperglycemia, hypoalbuminemia Comments Will continue to monitor PO status, skin status, pertinent labs and weight trends. Will f/u in 2-3 days 1) Advance TPN to meet >75% of needs 2) advance diet as medically feasible 3) Continue current plan of care Expected Outcomes/Goals: Pt labs to improve
[2020-06-02 17:00] VITALS: BP 148/81
--- NOTE | 2020-06-02 18:02 | NUR ---
CALLED DAUGHTER CARLOS TEL# [phone] FOR TELEPHONE CONSENT FOR CONVALESCENT PLASMA TRANSFUSION, CARLOS DID NOT ANSWER, I LEFT A MESSAGE FOR HER TO CALL ME BACK.
--- NOTE | 2020-06-02 18:12 | NUR ---
CARLOS URRUTIA, PT'S DAUGHTER CALLED TO GIVE CONSENT FOR CONVALESCENT PLASMA TRANSFUSION WITH RACHNA BANGURA SECOND WITNESS.
[2020-06-02] MEDS ORDERED: TPN PER PHARMACY IV NR ×8 (20:00)
[2020-06-02 21:53] VITALS: BP 141/65
[2020-06-03] VITALS (7 sets, daily range): BP systolic 103–132; BP diastolic 51–84
[2020-06-03] MEDS: InsuLIN REG 1unit/0.01ml Soln (100units/ml) SC SCH ×4 (00:44→18:45)
[2020-06-03] MEDS: ACCU-CHEK COMFORT CURVE STRIP VI SCH ×4 (00:45→18:03)
[2020-06-03] MEDS: ENOXAPARIN SOD 80 MG/0.8ML SYRINGE SC SCH ×2 (02:58→14:37)
--- NOTE | 2020-06-03 04:52 | NUR ---
PAGED RT To come assess BIPAP machine. It is showing an air leak. SPO2 ranging from 82-87% at this time. Face mask difficult to adjust on patient.
--- NOTE | 2020-06-03 04:56 | NUR ---
RT AT BEDSIDE RT EXAMINED PATIENT. FACE MASK WAS FIXED WHEN I ROUNDED AROUND THIS TIME. SPO2 AT 89-90%.
[2020-06-03] MEDS: PIPERACILLIN-TAZOB 3.375GM 100 ML IV SCH ×2 (05:53→14:37)
[2020-06-03 06:36] LABS: Hematocrit 47.7 % (41.0-53.0); Hemoglobin 15.9 g/dL (13.5-17.5); Mean Corpuscular Hemoglobin 28.4 pg (28.0-32.0); Mean Corpuscular Hgb Conc. 33.3 g/dL (32.0-36.0); Mean Corpuscular Volume 85.1 fL (80.0-100.0); Platelet Count (auto) 227 10^3/uL (140-450); Red Blood Cells 5.61 10^6/uL (4.5-5.90); Red Cell Distribution Width 14.4 % (11.8-14.3)
[2020-06-03 06:46] LABS: Potassium 3.5 mmol/L (3.5-5.1)
[2020-06-03 07:06] LABS: Band Neutrophils % (manual) 0; Basophils % (manual) 0 (0.0-2.0); Blast Cells 0; Eosinophils % (manual) 0 (0-7); Promyelocytes % 0; Reactive Lymphocytes 0
--- NOTE | 2020-06-03 07:20 | NUR ---
Opening Shift Note Assumed care of patient, awake and alert. Pt on bipap, sating in the 80's. Instructed on POC and to calling for assist PRN, will continue to monitor for changes Q1hr and PRN. Sitter at bedside.
[2020-06-03 07:26] LABS: Albumin 2.7 g/dL (3.4-5.0); BUN/Creatinine Ratio 37.1; Bilirubin, Total 0.9 mg/dL (0.2-1.0); Calcium 9.5 mg/dL (8.5-10.1); Magnesium 2.5 mg/dL (1.6-2.6); Phosphorus 2.7 mg/dL (2.5-4.90); Total Protein 6.9 g/dL (6.4-8.2)
--- NOTE | 2020-06-03 07:42 | NUR ---
END OF SHIFT Patient remains on BIPAP. Patient resting on his right side at this time. Sitter remains at bedside. Full report given to day shift RN.
[2020-06-03 08:32] LABS: Lymphocytes % (manual) 5 (10.0-50.0); Metamyelocytes % 1; Monocytes % (manual) 3 (0-12); Myelocytes % 1
[2020-06-03] MEDS: ASCORBIC ACID 1,000 MG TAB PO SCH (10:00)
[2020-06-03] MEDS: POTASSIUM CHL 20 Meq TABLET PO SCH (10:00)
[2020-06-03] MEDS: ALBUTEROL SULF HFA 90MCG INH 200DOSE IN PRN (10:00)
[2020-06-03] MEDS: SODIUM CHLOR 0.9% PF (SALINE LOCK) 10ML VIAL/SYR IV SCH (10:00)
[2020-06-03] MEDS: ZINC SULFATE 220mg CAP or TAB PO SCH (10:00)
[2020-06-03] MEDS: BUDESONIDE (INHALATION) 180 MCG IH IN SCH (10:00)
[2020-06-03] MEDS: CHOLECALCIFEROL (VITD3) 2,000 UNIT CAP PO SCH (10:00)
[2020-06-03] MEDS: FUROSEMIDE 40 MG/4 ML VIAL IV SCH (11:28)
[2020-06-03] MEDS: DexAMETHasone SOD PHOS 10MG/1ML VIAL INJ IV SCH (11:28)
--- NOTE | 2020-06-03 19:48 | NUR ---
This RN approached patients bedside for patient assessment. pt has a sitter. pt presented with labored respirations while on bipap. pts o2 saturation at this time was less than 55%. code assist was called at this time. This patient has a modified code status, in which intubation and chest compressions were not permitted. pt lost his pulse after the code assist was called. pt stopped breathing at this time. time of was called at 1952 by Stephanie Mejias M.D.
[2020-06-03] MEDS ORDERED: TPN PER PHARMACY IV NR ×9 (20:00)
--- NOTE | 2020-06-03 20:02 | NUR ---
pts daughter Carolee notified of patients expiration.
--- NOTE | 2020-06-03 20:10 | NUR ---
[facility] [employer] notified [phone]
--- NOTE | 2020-06-03 20:45 | NUR ---
Spoke with daughter Carolee, mortuary arrangements have not been made as of yet.
--- NOTE | 2020-06-04 00:18 | NUR ---
pt transported to [facility] at this time.
--- NOTE | 2020-06-05 05:57 | NUR ---
patient was taken to [place] for courtesy hold. Ex- Pat aware and stated daughter is handling all arrangements.
--- NOTE | 2020-06-05 06:02 | NUR ---
Called daughter Carolee in [place] and left message on cell phone where father was and phone number to [facility].
== END 2020-06-03 19:53 | DRG 871 ==
LOC: EDBD 09:43 → ER 09:43 → TELE 09:44 → TELE-EAST 22:10 → TELE-E-ADS 05-28 16:26
PROVIDERS: ADMIT Hospitalist; ATTEND Internal Medicine
PROC: XW13325 Transfusion of Convalescent Plasma (Nonautologous) into Peripheral Vein, Percutaneous Approach, New Technology Group 5 (ICD-10-PCS; principal; 2020-05-27)
PROC: 5A09557 Assistance with Respiratory Ventilation, Greater than 96 Consecutive Hours, Continuous Positive Airway Pressure (ICD-10-PCS; 2020-05-27)
PROC: 02HV33Z Insertion of Infusion Device into Superior Vena Cava, Percutaneous Approach (ICD-10-PCS; 2020-05-30)
PROC: XW033E5 Introduction of Remdesivir Anti-infective into Peripheral Vein, Percutaneous Approach, New Technology Group 5 (ICD-10-PCS; 2020-06-03)
DX: A41.89 Other specified sepsis (principal); U07.1 COVID-19; J12.89 Other viral pneumonia; J96.01 Acute respiratory failure with hypoxia; E43 Unspecified severe protein-calorie malnutrition; I50.31 Acute diastolic (congestive) heart failure; N17.0 Acute kidney failure with tubular necrosis; J44.1 Chronic obstructive pulmonary disease with (acute) exacerbation; E87.1 Hypo-osmolality and hyponatremia; I13.0 Hypertensive heart and chronic kidney disease with heart failure and stage 1 through stage 4 chronic kidney disease, or unspecified chronic kidney disease; J44.0 Chronic obstructive pulmonary disease with (acute) lower respiratory infection; I24.8 Other forms of acute ischemic heart disease; J45.901 Unspecified asthma with (acute) exacerbation; I50.82 Biventricular heart failure; I25.5 Ischemic cardiomyopathy; N18.9 Chronic kidney disease, unspecified; E66.9 Obesity, unspecified; Z68.30 Body mass index [BMI] 30.0-30.9, adult; E78.5 Hyperlipidemia, unspecified; I25.10 Atherosclerotic heart disease of native coronary artery without angina pectoris; Z66 Do not resuscitate; Z83.3 Family history of diabetes mellitus; Z82.49 Family history of ischemic heart disease and other diseases of the circulatory system; Z95.1 Presence of aortocoronary bypass graft; Z86.711 Personal history of pulmonary embolism; K72.90 Hepatic failure, unspecified without coma; Z23 Encounter for immunization
CPT/HCPCS: 36415; 36569; 36600; 71045; 80053; 80061; 80307; 81001; 82040; 82728; 82805; 82962; 83036; 83605; 83615; 83735; 83880; 84100; 84443; 84478; 84484; 85007; 85025; 85027; 85379; 85610; 85730; 86141; 86850; 86900; 86901; 87040; 87086; 87426; 87804; 93306; 94640; 94660; 96360; 96361; G0378; J1100; J1815; J2543; J3480; J7060